=== PATIENT | female | born 1980 | race Caucasian/White ===

== ENCOUNTER 2022-02-08 09:15 | Emergency (ER) | payer OTHER ==
[~2022-02-08] VITALS: Ht 167.6 cm; Wt 68.0 kg
[2022-02-08 10:40] LABS: BASO # 0.1 10*3/uL (0.0-0.1); BASO % 0.8 % (0.0-1.0); EOS # 0.2 10*3/uL (0.0-0.4); EOS % 2.5 % (1.0-4.0); HEMATOCRIT 42.2 % (37.0-47.0); LYMPH # 1.5 10*3/uL (1.3-4.4); LYMPH % 22.3 % (27.0-41.0); MEAN CELL VOLUME 90.6 fl (81.0-99.0); MEAN CORPUSCULAR HGB 30.9 pg (27.0-31.0); MEAN CORPUSCULAR HGB CONC 34.1 g/dl (33.0-37.0); MEAN PLATELET VOLUME 9.6 fl (9.6-12.3); MONO # 0.3 10*3/uL (0.1-1.0); MONO % 4.3 % (3.0-9.0); NEUT # 4.5 10*3/uL (2.3-7.9); NEUT % 69.9 % (47.0-73.0); PLATELET COUNT AUTOMATED 247 10*3/uL (130-400); RED BLOOD COUNT 4.66 10*6/uL (4.10-5.10); RED CELL DISTRI WIDTH 12.6 % (0-14.5); WHITE BLOOD COUNT 6.5 10*3/uL (4.8-10.8)
[2022-02-08 10:54] LABS: ACT PARTIAL THROMBO TIME 26.1 SECONDS (20.0-32.1); INTERNATIONAL NORM RATIO 0.9 (2.0-3.5)
[2022-02-08 10:58] LABS: ALKALINE PHOSPHATASE 64 U/L (45-117); BUN 16 mg/dl (7-24); CHLORIDE 112 mmol/L (98-107); CREATININE 0.44 mg/dL (0.55-1.02); LIPASE 61 U/L (73-393); POTASSIUM 3.9 mmol/L (3.5-5.1); SGOT/AST 11 IU/L (3-35); SGPT/ALT 16 U/L (12-78); SODIUM 141 mmol/L (136-145); TOTAL PROTEIN 7.1 gm/dL (6.4-8.2)
[2022-02-08 11:00] LABS: BETA-HCG, QUANT < 1.0 mIU/mL (1-3)
== END 2022-02-08 13:51 | disposition home or self-care (01) ==
LOC: ED 09:15
PROVIDERS: Emergency Medicine
DX: I80.02 Phlebitis and thrombophlebitis of superficial vessels of left lower extremity (principal)